=== PATIENT | female | born 1995 ===

== ENCOUNTER 2023-12-26 21:03 | Emergency (ER) | payer OTHER, SELFPAY ==
--- NOTE | 2023-12-26 22:13 | DI.US.S_ITS ---
PROCEDURE: US OB LIMITED INDICATIONS: Abdominal pain OUTSIDE/PRIOR DATING DATA: Last menstrual period (LMP): 09/19/2023 LMP-based estimated date of delivery (ELAN): 06/25/2024 First dating scan (date and location): 12/26/2023 Estimated date of delivery (ELAN) from first dating scan: 06/17/2024 The calculations are made using the clinical ELAN of 06/25/2024. TECHNIQUE: Real-time scanning was performed of the fetus, with image documentation and biometric measurements. Biophysical profile was also obtained. Endovaginal scanning: Not performed. COMPARISON: None. FINDINGS: General: A single living intrauterine gestation is present. Presentation: Variable Placenta: Placental position is posterior, without previa. Amniotic fluid index: Subjectively normal heart rate: 152 beats per minute. Maternal cervical canal: 4.2 cm long. Normal lower limit is 2.5 cm. biometrics: Biparietal diameter: 3.0 cm, 15 weeks 3 days Head circumference: 11.2 cm, 15 weeks 3 days Abdominal circumference: 8.4 cm, 14 weeks 5 days Femur length: 1.6 cm, 14 weeks 5 days Clinically estimated gestational age: 14 weeks 0 days Composite gestational age from present scan: 15 weeks 1 day Estimated weight and percentile: Not calculated IMPRESSION: Single live intrauterine with estimated gestational age of 15 weeks 1 day corresponding to an ultrasound ELAN of 06/17/2024. Approved by: Vladimir Marte M.D. on 12/26/2023 at 23:39
--- NOTE | 2023-12-27 13:13 | PC.NURSE ---
[facility] downtime began 12/26/231999 and continued throughout the patient's stay. Refer to paper documentation.
[2023-12-27 18:31] LABS: Add Manual Diff / Slide Review NO; Basophils Absolute Auto 0 /uL (0-100); Basophils Percent Auto 0.3 % (0-2); Eosinophils Absolute Auto 200 /uL (0-450); Eosinophils Percent Auto 3.9 % (2-4); Hematocrit 33.1 % (36-46); Hemoglobin 10.8 g/dL (12.0-16.0); Lymphocytes Absolute Auto 1400 /uL (1100-4500); Lymphocytes Percent Auto 29.4 % (25-40); Mean Corpuscular HGB Conc 32.6 % (30-36); Mean Corpuscular Volume 76.6 fL (80-100); Monocytes Absolute Auto 300 /uL (0-900); Monocytes Percent Auto 7.5 % (3-14); Neutrophils Absolute Auto 2800 /uL (1500-7000); Neutrophils Percent Auto 58.9 % (50-75); Platelet Count 166 X10^3/uL (150-400); Red Blood Cell Count 4.33 X10^6/uL (4.0-5.2); Red Cell Distribution Width 14.8 % (11.6-14.8); White Blood Cell Count 4.7 X10^3/uL (4.5-11.0)
[2023-12-27 18:33] LABS: Alanine Aminotransferase 8 IU/L (<35); Albumin 4.4 g/dL (3.5-5.0); Albumin Globulin Ratio 1.3 (1.0-2.8); Alkaline Phosphatase 35 U/L (38-126); Aspartate Aminotransferase 21 IU/L (14-36); Bilirubin Total 0.3 mg/dL (0.2-1.3); Blood Urea Nitrogen 9 mg/dL (7-17); Calcium 9.3 mg/dL (8.4-10.2); Carbon Dioxide 25 mmol/L (22-32); Chloride 105 mmol/L (98-107); Estimated Glomerular Filt Rate > 60 mL/min (>60); Globulin 3.5 g/dL (1.7-4.1); Glucose 85 mg/dL (70-100); HEMOLYSIS < 15 (0-50); Potassium 3.5 mmol/L (3.4-5.1); Pregnancy Test Urine Positive (Negative); Sodium 135 mmol/L (137-145); Total Protein 7.9 g/dL (6.3-8.2)
[2023-12-27 18:53] LABS: Appearance Urine UA Clear; Color Urine UA Yellow; Glucose Urine UA NEGATIVE (Negative); Ketones Urine UA 1+ (NEGATIVE); Occult Blood Urine UA Negative (Negative); Protein Urine UA Negative (Negative); Specific Gravity Urine UA 1.015 (1.000-1.035)
[2023-12-27 18:54] LABS: Bacteria Urine Few (2-10); Bilirubin Urine UA Negative (NEGATIVE); Culture Indicated Urine Specimen Cultured; Leukocyte Esterase Urine UA 1+ (NEGATIVE); Nitrite Urine UA NEGATIVE (Negative); RBC Urine 0-1/HPF (0-5/HPF); Squamous Epithelial Cell Urine 1-5 /HPF (0-5/HPF); Urine Volume 10mL (spun); Urobilinogen Urine UA 0.2 E.U./dL (0.2); WBC Urine 1-5/HPF (0-5/HPF)
== END 2023-12-27 00:05 | disposition home or self-care (01) ==
PROVIDERS: Emergency Provider Emergency Medicine
DX: O26.892 Other specified pregnancy related conditions, second trimester (principal); R10.9 Unspecified abdominal pain; Z3A.15 15 weeks gestation of pregnancy
CPT/HCPCS: 76815; 80053; 81001; 81025; 85025; 86900; 86901; 87086; 99283